=== PATIENT | male | born 1980 | race Two or more races ===

== ENCOUNTER → 2017-02-12 | Outpatient (REF) | payer MEDICAID ==
[2017-02-12 17:28] LABS: BASO # 0.1 10^3/uL (0.0-0.2); BASO % 0.9 % (0.0-1.0); EOS # 0.4 10^3/uL (0.0-0.50); EOS % 4.5 % (0.0-3.0); IMMATURE GRANULOCYTE % 0.3 % (0-0); LYMPH # 2.1 10^3/uL (1.5-4.5); LYMPH % 27.6 % (24.0-44.0); MEAN CORPUSCULAR HEMOGLOBIN 28.4 pg (27.0-33.0); MEAN CORPUSCULAR HGB CONC 32.5 g/dl (32.0-36.5); MEAN CORPUSCULAR VOLUME 87.2 fl (80.0-96.0); MONO # 0.7 10^3/uL (0.0-0.8); MONO % 8.5 % (0.0-5.0); NEUTROPHILS # 4.5 10^3/uL (1.8-7.7); NEUTROPHILS % 58.2 % (36.0-66.0); PLATELET COUNT, AUTOMATED 373 10^3/uL (150-450); RED CELL DISTRIBUTION WIDTH 12.7 % (11.5-14.5); WHITE BLOOD COUNT 7.7 10^3/uL (4.0-10.0)
[2017-02-12 19:12] LABS: ALBUMIN 3.9 GM/DL (3.2-5.2); ALBUMIN/GLOBULIN RATIO 1.11 (1.00-1.93); ALKALINE PHOSPHATASE 88 U/L (45-117); ALT/SGPT 57 U/L (12-78); ANION GAP 11 MEQ/L (8-16); AST/SGOT 30 U/L (7-37); BILIRUBIN,TOTAL 0.3 MG/DL (0.2-1.0); BLOOD UREA NITROGEN 16 MG/DL (7-18); CALCIUM LEVEL 8.6 MG/DL (8.5-10.1); CARBON DIOXIDE LEVEL 26 MEQ/L (21-32); CHLORIDE LEVEL 106 MEQ/L (98-107); CHOLESTEROL LEVEL 200 MG/DL (<200); CREATININE FOR GFR 1.01 MG/DL (0.70-1.30); GLOMERULAR FILTRATION RATE > 60.0 (>60); GLUCOSE, FASTING 86 MG/DL (70-105); POTASSIUM SERUM 4.3 MEQ/L (3.5-5.1); SODIUM LEVEL 143 MEQ/L (136-145); TOTAL PROTEIN 7.4 GM/DL (6.4-8.2); TRIGLYCERIDES LEVEL 115 MG/DL (<150)
== END ==
LOC: M SFHCCAPE 08:02
PROVIDERS: ATTEND Physician Assistant
DX: R03.0 Elevated blood-pressure reading, without diagnosis of hypertension (principal); E66.09 Other obesity due to excess calories; Z68.32 Body mass index [BMI] 32.0-32.9, adult; F90.2 Attention-deficit hyperactivity disorder, combined type

== ENCOUNTER 2020-07-19 21:00 | Inpatient (IN) | payer MEDICAID, OTHER ==
[~2020-07-19] VITALS: Ht 170.2 cm; Wt 96.5 kg
[2020-07-19] MEDS ORDERED: ADDE20TA (21:17)
[2020-07-19 21:40] LABS: BASO # 0.1 10^3/uL (0.0-0.2); BASO % 0.9 % (0.0-1.0); EOS # 0.5 10^3/uL (0.0-0.5); EOS % 5.8 % (0.0-3.0); HEMOGLOBIN 14.3 g/dl (13.5-17.5); LYMPH # 2.7 10^3/uL (1.5-5.0); LYMPH % 30.2 % (24.0-44.0); MEAN CORPUSCULAR HEMOGLOBIN 27.3 pg (27.0-33.0); MEAN CORPUSCULAR HGB CONC 31.8 g/dl (32.0-36.5); MEAN CORPUSCULAR VOLUME 85.9 fl (80.0-96.0); MONO # 0.9 10^3/uL (0.0-0.8); MONO % 10.3 % (2.0-8.0); NEUTROPHILS # 4.6 10^3/uL (1.5-8.5); NEUTROPHILS % 52.6 % (36.0-66.0); PLATELET COUNT, AUTOMATED 375 10^3/uL (150-450); RED BLOOD COUNT 5.24 10^6/uL (4.30-6.10); WHITE BLOOD COUNT 8.8 10^3/uL (4.0-10.0)
[2020-07-19 22:04] LABS: AMPHETAMINES LEVEL URINE POSITIVE (NEGATIVE); BARBITURATES URINE NEGATIVE (NEGATIVE); BENZODIAZEPINES URINE NEGATIVE (NEGATIVE); CANNABINOIDS URINE NEGATIVE (NEGATIVE); COCAINE METABOLITE URINE NEGATIVE (NEGATIVE); METHADONE URINE NEGATIVE (NEGATIVE); OPIATES URINE NEGATIVE (NEGATIVE); PHENCYCLIDINE URINE NEGATIVE (NEGATIVE)
[2020-07-19 22:46] LABS: ACETAMINOPHEN LEVEL < 2.0 UG/ML (10.0-30.0); ALBUMIN 3.6 GM/DL (3.2-5.2); ALT/SGPT 53 U/L (12-78); BILIRUBIN,DIRECT < 0.1 MG/DL (0.0-0.2); BILIRUBIN,TOTAL 0.2 MG/DL (0.2-1.0); BLOOD UREA NITROGEN 12 MG/DL (7-18); CALCIUM LEVEL 8.5 MG/DL (8.5-10.1); CARBON DIOXIDE LEVEL 26 MEQ/L (21-32); CHLORIDE LEVEL 107 MEQ/L (98-107); CREATININE FOR GFR 0.91 MG/DL (0.70-1.30); ETHYL ALCOHOL (ETHANOL) < 0.003 % (0.000-0.010); GLOMERULAR FILTRATION RATE > 60.0 (>60); GLUCOSE, FASTING 107 MG/DL (70-100); POTASSIUM SERUM 3.4 MEQ/L (3.5-5.1); SALICYLATE LEVEL < 1.7 MG/DL (5.0-30.0); SODIUM LEVEL 143 MEQ/L (136-145); TOTAL PROTEIN 6.8 GM/DL (6.4-8.2)
[2020-07-20] MEDS ORDERED: MOM 30ML SUSPENSION UDC PO PRN (04:10)
[2020-07-20] MEDS ORDERED: OLANZapine ORAL DISINTEGRATING TAB 5MG PO PRN (04:10)
[2020-07-20] MEDS ORDERED: traZODone 50 MG TAB PO PRN (04:10)
[2020-07-20] MEDS ORDERED: ACETAMINOPHEN TAB 650MG DOSE (2X325MG) PO PRN (04:10)
[2020-07-20] MEDS ORDERED: MAALOX 30 ML SUSP *UDC PO PRN (04:10)
[2020-07-20] MEDS ORDERED: IBUP-1720 PO (04:40)
[2020-07-20] MEDS ORDERED: ADDE20TA PO (04:40)
[2020-07-20 05:41] VITALS: BP 130/98
--- NOTE | 2020-07-20 10:30 | MHHPEPDOC ---
General Date Of Admission: July 20, 2020 Legal Status: 9.39 Chief Complaint "I hated that place and arguing with my aunt got upset and I said something . History of Present Illness HISTORY OF THE PRESENT ILLNESS: Patient is a 40 -year-old , male, who [has no prior psychiatric history, was brought to emergency room by police after he got very upset and reportedly made a statement that he might as well kill himself. Patient states that his been unemployed for the past 2-3 years, has been staying with his aunt and the house is crampy and he has been feeling miserable. He recently relapsed using methamphetamine after 2 months of sobriety at this in the process of applying for a job. Yesterday in the evening. He was taking a nap and his other aunt woke him up and they started the argument which escalated into angry exchange and he lost his cool and made the statement that he might as well be . His aunt called the police and was brought to the emergency room and admitted. Patient states that he had no intent to kill himself and was in an angry outburst and doesn't even remember what he exactly said and is quite remorseful but also upset that his aunt called the police to have him arrested. He states that he never had any psychiatric issues, although he has been abusing amphetamine for the past 10 years on and off. He denies any legal history and denies any history of depression or suicidal thoughts, and no attempts. He was scheduled to start substance abuse counseling but hasn't started it yet, but is willing to follow up. He claims he has an issue with the ADHD and has been receiving Adderall from his primary care doctor. Is willing to cooperate with evaluation and understands that continues to be an observation, but is anxious to be discharged [facility]. Psychiatric Review of Systems Depression (2 or more weeks): denies Zee (4 or more days of): denies Psychosis: denies PTSD: denies Anxiety: denies Past Psychiatric History Previous Psychiatric Diagnosis: [ADHD since second grade]. Previous Psychiatric Admissions: [None]. Suicide Attempts: No history of suicidal attempt. Psychiatric Follow-up: [Wasn't scheduled for substance abuse counseling]. Psychiatric medications: [Been on Adderall from his primary care doctor]. Past Medical History Medical Problems No major medical history except for asthma Head Injury: No Seizures: No Hospitalizations: No Surgeries: No Family Medical/Psychiatric HX Psychiatric Disorders: No Addiction: No Suicide Attemps/Completions: No Addiction History amphetamines Social History Childhood: [Uneventful]. Abuse/Trauma:[Denies any]. Current Living Situation: [Lived with an aunt and supported by her]. Education: [Went to [employer] majored in [employer]]. Employment: [Unemployed since 2017, no financial resources]. Social Support: [And]. Legal: [Denies any legal issues]. Marital: [, Single, never ]. Mental Status Examination General Appearance: disheveled, hospital scubs/clothing Build: average Demeanor: average Eye Contact: average Activity: average, anxious Behavior: cooperative, restless Speech: clear, rapid, normal volume Mood: anxious, angry Mood He denies any serious depression but is somewhat anxious and feeling worthless at times, but denies any suicidal thoughts. His sleep and appetite has been fair and no other biological symptoms of depression Affect: full, appropriate, congruent, anxious Thought Process: logical/linear Thought Content (Delusions): none reported Thought Content (Other): none reported Thought Content (Aggressive): none reported Perception (Hallucinations): none reported Perception (Other): none reported Cognition (Impairment of): orientation (well-oriented normal. Her memory and fair concentration) Cognition(Intelligence Est.): average Oriented: Awake, Alert, Oriented times three Insight: fair Judgment: Fair Psychosis: Denies Diagnoses Adjustment disorder with mixed emotion Methamphetamine use disorder A-FIB/CHADSVASC A-FIB History Current/History of A-Fib/PAF?: No Current PO Anticoag Therapy: No Age/Risk Factor Scoring CHADSVASC: CHADSVASC Response (Comments) Value Gender Risk Factor Male 0 Hx of CHF No 0 Hx of HTN No 0 Hx of Stroke/TIA/or VTE No 0 Hx of Diabetes No 0 Hx of Vascular Disease No 0 Total 0 Treatment Treatment ordered: NONE Assessment The patient does not appear to have any major depressive symptoms and strongly denies any suicidal thoughts. He is not showing any psychotic symptoms understands the that he has methamphetamine. This use disorder and is willing to follow up with the substance abuse counseling after discharge. We were observing him for any lethality issues with the supportive therapy and education. Initial Treatment Plan 1. Patient was admitted on a [9.39] status. 2. Complete history was obtained. 3. With patients permission, family will be contacted and database will be exp anded. 4. Patients medication regimen will be reviewed and changed accordingly. 5. Patient will be provided with protected environment. 6. Patient will be treated with individual, group, and milieu therapies. 7. Patient will receive supportive psych-education. 8. Discharge planning will commence immediately. 9. Outpatient follow-up treatment will be strongly recommended. 10. The initial treatment plan will focus initially on: * Depression. * Risk for suicide. ESTIMATED LENGTH OF STAY: - DAYS. TIME SPENT COUNSELING AND COORDINATING INITIAL CARE: minutes. Tobacco Cessation Screen If Patient is a Smoker Patient denies being a heavy smoker and doesn't want any nicotine cessation treatment N/A-No Antipsychotics Vital Signs Vital Signs Date Time Temp Pulse Resp B/P (MAP) Pulse Ox O2 Delivery O2 Flow Rate FiO2 07/20/20 05:41 97.2 80 18 130/98 (109) 99 Room Air Laboratory Data 24H Labs Laboratory Tests 2 07/19/20 21:29: Immature Granulocyte % (Auto) 0.2, Neutrophils (%) (Auto) 52.6, Lymphocytes (%) (Auto) 30.2, Monocytes (%) (Auto) 10.3H, Eosinophils (%) (Auto) 5.8H, Basophils (%) (Auto) 0.9, Neutrophils # (Auto) 4.6, Lymphocytes # (Auto) 2.7, Monocytes # (Auto) 0.9H, Eosinophils # (Auto) 0.5, Basophils # (Auto) 0.1, Nucleated Red Blood Cells % (auto) 0.0, Anion Gap 10, Glomerular Filtration Rate > 60.0, Calcium Level 8.5, Total Bilirubin 0.2, Direct Bilirubin < 0.1, Aspartate Amino Transf (AST/SGOT) 38H, Alanine Aminotransferase (ALT/SGPT) 53, Alkaline Phosphatase 100, Total Protein 6.8, Albumin 3.6, Albumin/Globulin Ratio 1.1, Thyroid Stimulating Hormone (TSH) 2.180, Salicylates Level < 1.7L, Urine Opiates Screen NEGATIVE, Urine Methadone Screen NEGATIVE, Acetaminophen Level < 2.0L, Urine Barbiturates Screen NEGATIVE, Urine Phencyclidine Screen NEGATIVE, Urine Amphetamines Screen POSITIVEH, Urine Benzodiazepines Screen NEGATIVE, Urine Cocaine Metabolite Screen NEGATIVE, Urine Cannabinoids Screen NEGATIVE, Ethyl Al cohol Level < 0.003 CBC/BMP Laboratory Tests 07/19/20 21:29 Medications Scheduled Dextroamphetamine/Amphetamine (Adderall 20 mg Tablet) 20 Mg Tablet, 20 MG PO BID, (Reported) Scheduled PRN Ibuprofen (Ibuprofen) 200 Mg Tablet, 600 MG PO Q6H PRN for PAIN, (Reported) Allergies Coded Allergies: No Known Allergies (Unverified , 07/19/20) GUILLAUME VALENTINE M.D. July 20, 2020 10:29
--- NOTE | 2020-07-20 16:13 | HPEPDOC ---
General Date of Admission July 19, 2020 at 21:01 Date of Service: July 20, 2020 Attending Physician: SIDDHARTH PIRES MD Chief Complaint The patient is a 40-year-old male admitted with a reason for visit of Unspecified Mood D/O. Source: Patient, RN/MD, RN notes reviewed Exam Limitations: No limitations History of Present Illness 40 yo M with a past medical history of asthma and ADHD on Adderall, as well as a history of illicit drug use with meth, who was brought in by police after his father called them because the patient had made threatening suicidal statements i/s/o psychosocial stressors with an aunt he resides with and frustration over lack of personal living space and financial independence as he is struggling to get a job and a recent relapse and use of meth after 2 months of sobriety. In the ED, he denied active suicidal ideation or a plan but reported feeling hopeless. Workup was notable for grossly normal CBC and BMP and tox screen was positive for amphetamines which may be from his Adderall. He is now admitted to the [facility] and medicine is consulted for medical evaluation. On ROS, he reports L ankle pain from his ongoing tendonitis for which he is wearing a brace and is asking for ibuprofen because that is what works for his pain. Home Medications Scheduled Dextroamphetamine/Amphetamine (Adderall 20 mg Tablet) 20 Mg Tablet, 20 MG PO BID, (Reported) Scheduled PRN Ibuprofen (Ibuprofen) 200 Mg Tablet, 600 MG PO Q6H PRN for PAIN, (Reported) Allergies Coded Allergies: No Known Allergies (Unverified , 07/19/20) Past Medical History Medical History asthma ADHD Surgical History None Social History * Smoker: Denies Alcohol: Denies Drugs: other (crystal meth) Recent Travel/Sick Contacts: Denies: Recent travel, Recent sick contacts Psychosocial History: Att. deficit disorder A-FIB/CHADSVASC A-FIB History Current/History of A-Fib/PAF?: No Current PO Anticoag Therapy: No Age/Risk Factor Scoring CHADSVASC: CHADSVASC Response (Comments) Value Age Risk Factor Age < 65 years old 0 Gender Risk Factor Male 0 Hx of CHF No 0 Hx of HTN No 0 Hx of Stroke/TIA/or VTE No 0 Hx of Diabetes No 0 Hx of Vascular Disease No 0 Total 0 Treatment Treatment ordered: NONE Reason Anticoagulant not given: Not indicated/[id number] Review of Systems Constitutional: Denies: Chills, Fever, Night Sweats Eyes: Denies: Pain, Vision change ENT: Denies: Head Aches, Ear Pain, Dysphagia Skin: Denies: Rash, Lesions, Jaundice, Bruising, Itching, Dry, Breakdown, Nail Changes, Other Pulmonary: Denies: Dyspnea, Cough Cardiovascular: Denies: Chest Pain, Palpitations, Orthopnea, Paroxysmal Noc. Dyspnea, Lt Headedness Gastrointestinal: Denies: Nausea, Vomiting, Abdominal Pain, Diarrhea Genitourinary: Denies: Dysuria, Frequency, Incontinence, Retention Hematologic: Denies: Bruising, Bleeding Excessively Endocrine: Denies: Polydipsia, Polyphagia, Polyuria, Heat Intolerance, Cold Intolerance, Other Endocrine Sx Musculoskeletal: Denies: Neck Pain, Back Pain, Joint Pain, Muscle Pain, Spasms Neurological: Denies: Weakness, Numbness, Change in speech, Confusion Psych: Reports: Mood Normal, Anxiety, Depression; Denies: Memory Issues Physical Examination General Exam: Positive: Alert, No Acute Distress Eye Exam: Positive: PERRLA, Conjunctiva & lids normal, EOMI; Negative: Sclera icteric ENT Exam: Positive: Atraumatic, Mucous membr. moist/pink, Pharynx Normal Neck Exam: Positive: Supple; Negative: JVD, thyromegaly Chest Exam: Positive: Clear to auscultation, Normal air movement Heart Exam: Positive: Rate Normal, Regular Rhythm, Normal S1, Normal S2; Negative: Murmurs, Rubs Abdomen Exam: Positive: Normal bowel sounds, Soft; Negative: Tenderness, Hepatospenomegaly Extremity Exam: Positive: Normal pulses; Negative: Clubbing, Cyanosis, Edema Skin Exam: Positive: Nl turgor and temperature; Negative: Breakdown, Lesion Neuro Exam: Positive: Normal Gait, Normal Speech, Cranial Nerves 3-12 NL, Reflexes 2+ Psych Exam: Positive: Mental status NL, Mood NL, Oriented x 3 Vital Signs Vital Signs Date Time Temp Pulse Resp B/P (MAP) Pulse Ox O2 Delivery O2 Flow Rate FiO2 07/20/20 05:41 97.2 80 18 130/98 (109) 99 Room Air Laboratory Data Labs 24H Laboratory Tests 2 07/19/20 21:29: Immature Granulocyte % (Auto) 0.2, Neutrophils (%) (Auto) 52.6, Lymphocytes (%) (Auto) 30.2, Monocytes (%) (Auto) 10.3H, Eosinophils (%) (Auto) 5.8H, Basophils (%) (Auto) 0.9, Neutrophils # (Auto) 4.6, Lymphocytes # (Auto) 2.7, Monocytes # (Auto) 0.9H, Eosinophils # (Auto) 0.5, Basophils # (Auto) 0.1, Nucleated Red Blood Cells % (auto) 0.0, Anion Gap 10, Glomerular Filtration Rate > 60.0, Calcium Level 8.5, Total Bilirubin 0.2, Direct Bilirubin < 0.1, Aspartate Amino Transf (AST/SGOT) 38H, Alanine Aminotransferase (ALT/SGPT) 53, Alkaline Phos phatase 100, Total Protein 6.8, Albumin 3.6, Albumin/Globulin Ratio 1.1, Thyroid Stimulating Hormone (TSH) 2.180, Salicylates Level < 1.7L, Urine Opiates Screen NEGATIVE, Urine Methadone Screen NEGATIVE, Acetaminophen Level < 2.0L, Urine Barbiturates Screen NEGATIVE, Urine Phencyclidine Screen NEGATIVE, Urine Amphetamines Screen POSITIVEH, Urine Benzodiazepines Screen NEGATIVE, Urine Cocaine Metabolite Screen NEGATIVE, Urine Cannabinoids Screen NEGATIVE, Ethyl Alcohol Level < 0.003 CBC/BMP Laboratory Tests 07/19/20 21:29 Microbiology Microbiology 07/20/20 Respiratory Virus Panel (PCR) ([facility] [place]) - Final, Complete Assessment/Plan 40 yo M admitted to the [facility] after making suicidal statements to family i/s/o psychosocial stress and recent relapse with crystal meth. Suicidal ideation and depressed mood: -Plan per primary psych team Asthma: -Was mostly a childhood issue. No recent problems. Stable L ankle tendonitis: -can continue wearing current brace -ibuprofen 600mg Q6HP DVT ppx: ambulatory Thank you for the consult. Medicine will sign off at this time. Plan / VTE VTE Prophylaxis Ordered?: No VTE Exclusion Mechanical Proph: Low Risk for VTE VTE Exclusion Pharmacological: At Low Risk for VTE SIDDHARTH PIRES MD July 20, 2020 13:08
[2020-07-20 16:20] VITALS: BP 136/90
[2020-07-20] MEDS: IBUPROFEN 600MG TAB PO PRN (16:29)
[2020-07-21 06:25] VITALS: BP 137/86
--- NOTE | 2020-07-21 11:01 | MHIPNPDOC ---
[facility] Progress Note Progress Note DATE OF SERVICE: 07/21/20 The patient reports that the he had a good day and slept without any problems and denies any new issues and feeling better without any more suicidal thoughts. He still doesn't feel he needs any psychotropic medications and doesn't feel he needs any psychiatric follow-up care. He is pleasant and animated and verbally productive strongly denies any suicidal thoughts. HISTORY: . VITAL SIGNS: See below. NEW TEST RESULTS: . CURRENT MEDICATIONS: See below. MENTAL STATUS EXAMINATION: Patient is a 40-year old male, who is in no acute distress. Speech: Is good. Language skills are good. Thought processes including: Organized and rational . Thought content: . No psychotic symptoms. Abstract reasoning, and computation: Good. Description of associations: Good. Description of abnormal or psychotic thoughts: None . Judgment: , Fair. Insight: , Fair. Orientation: , Well-oriented. Recent and remote memory: Good. Attention span and concentration: Good. Language: . Fund of knowledge: Average. Mood: Euthymic. Affect: , Appropriate. DIAGNOSES: 1. . Adjustment disorder with mixed emotion 2. . 3. . ASSESSMENT:[In good control and denies any suicidal thoughts] MANAGEMENT PLAN: [, Supportive therapy and lethality evaluation]. TIME SPENT: [15] minutes. Vital Signs Vital Signs Date Time Temp Pulse Resp B/P (MAP) Pulse Ox O2 Delivery O2 Flow Rate FiO2 07/21/20 06:25 98.5 84 18 137/86 (103) 97 Room Air Current Medications Current Medications Medications (Trade) Dose Ordered Sig/Amy Route PRN Reason Start Time Stop Time Status Last Admin Dose Admin Acetaminophen (Tylenol Tab) 650 mg Q6HP PRN PO HEADACHE or DISCOMFORT 07/20/20 04:10 Al Hydrox/Mg Hydrox/Simethicone (Mylanta) 30 ml Q4HP PRN PO HEARTBURN/INDIGESTION 07/20/20 04:10 Home Med (Med Rec Complete!) ASDIRECTED XX 07/20/20 04:40 07/20/20 04:42 DC Ibuprofen (Advil) 600 mg Q8HP PRN PO PAIN 07/20/20 16:10 07/20/20 16:29 Magnesium Hydroxide (Milk Of Magnesia) 30 ml DAILYPRN PRN PO CONSTIPATION 07/20/20 04:10 Olanzapine (ZyPREXA ZYDIS) 5 mg Q6HP PRN PO ANXIETY 07/20/20 04:10 Trazodone HCl (Desyrel) 50 mg QHSP PRN PO INSOMNIA 07/20/20 04:10 Allergies Coded Allergies: No Known Allergies (Unverified , 07/19/20) GUILLAUME VALENTINE M.D. July 21, 2020 11:01
[2020-07-21] MEDS: IBUPROFEN 600MG TAB PO PRN (12:39)
[2020-07-21 16:28] VITALS: BP 126/77
[2020-07-22 06:25] VITALS: BP 128/86
--- NOTE | 2020-07-22 08:49 | MHIPNPDOC ---
[facility] Progress Note Progress Note DATE OF SERVICE: 07/22/20 Patient reports that he slept well and is doing okay and reports no new complaints. He is feeling a little bored, but not anymore depressed and strongly denies any suicidal thoughts. His main concern is returnining to his aunt after d/c feeling somewhat uneasy and all current apparently hadn't spoken to her and is welcome to return there. He is going to go and look for a job and trying to get motivated and strongly denies any thoughts of suicide and is anxious to be discharged and declined any type of psychotropic medications. VITAL SIGNS: See below. NEW TEST RESULTS: . CURRENT MEDICATIONS: See below. MENTAL STATUS EXAMINATION: Patient is a forwarded to-year old male, who is , sitting on his bed, pleasant and cooperative and no acute distress. Speech: Is regression are coherent. Language skills are good. Thought processes including: , Organized. Thought content: , No delusions or paranoia. No suicidal thoughts. Abstract reasoning, and computation: Good. Description of associations: [Good]. Description of abnormal or psychotic thoughts: None . Judgment: [Fair]. Insight: [Fair]. Orientation: [, Well-oriented]. Recent and remote memory: [Good]. Attention span and concentration: [Good]. Language: . Fund of knowledge: [Average]. Mood: [Euthymic]. Affect: [, Appropriate]. DIAGNOSES: 1. . Adjustment disorder with mixed emotion 2. . 3. . ASSESSMENT:[Remained in good control and denies any suicidal or thoughts with the improved affect and more animated and spontaneous] MANAGEMENT PLAN: [. Continue with the supportive therapy and lethality evaluation and possibly discharge tomorrow]. TIME SPENT: [20] minutes. Vital Signs Vital Signs Date Time Temp Pulse Resp B/P (MAP) Pulse Ox O2 Delivery O2 Flow Rate FiO2 07/22/20 06:25 97.2 79 18 128/86 (100) 96 Room Air Current Medications Current Medications Medications (Trade) Dose Ordered Sig/Amy Route PRN Reason Start Time Stop Time Status Last Admin Dose Admin Acetaminophen (Tylenol Tab) 650 mg Q6HP PRN PO HEADACHE or DISCOMFORT 07/20/20 04:10 Al Hydrox/Mg Hydrox/Simethicone (Mylanta) 30 ml Q4HP PRN PO HEARTBURN/INDIGESTION 07/20/20 04:10 Home Med (Med Rec Complete!) ASDIRECTED XX 07/20/20 04:40 07/20/20 04:42 DC Ibuprofen (Advil) 600 mg Q8HP PRN PO PAIN 07/20/20 16:10 07/21/20 12:39 Magnesium Hydroxide (Milk Of Magnesia) 30 ml DAILYPRN PRN PO CONSTIPATION 07/20/20 04:10 Olanzapine (ZyPREXA ZYDIS) 5 mg Q6HP PRN PO ANXIETY 07/20/20 04:10 Trazodone HCl (Desyrel) 50 mg QHSP PRN PO INSOMNIA 07/20/20 04:10 Allergies Coded Allergies: No Known Allergies (Unverified , 07/19/20) GUILLAUME VALENTINE M.D. July 22, 2020 08:49
[2020-07-22] MEDS: IBUPROFEN 600MG TAB PO PRN (10:56)
[2020-07-22 16:13] VITALS: BP 124/80
[2020-07-23 06:25] VITALS: BP 142/81
[2020-07-23] MEDS: IBUPROFEN 600MG TAB PO PRN (08:35)
--- NOTE | 2020-07-23 10:10 | MHDSPDOC ---
[facility] Discharge Summary Discharge Summary DATE OF ADMISSION: July 19, 2020 at 21:01 DATE OF DISCHARGE: July 13 12/26/2020 DISCHARGE DIAGNOSES: Adjustment disorder with mixed emotion]. 2. . REASON FOR ADMISSION: Patient was admitted after making a vague suicidal statement in an argument with his aunt. Patient reports feeling upset and angry due to his current unemployment and unstable living situation CONSULTANTS INVOLVED: [facility]- TREATMENT AND PROGRESS ON THE UNIT : Patient was seen for daily supportive therapy and lethality evaluation. Patient denies any ongoing major depressive symptoms and strongly denied any suicidal plan or intent or history. He has a history of amphetamine abuse, but has been in sobriety except for brief relapse in May and denies any current addictions issues and denies any serious depression or suicidal thoughts.. HOSPITAL COURSE: Patient remained in good control are throughout the stay. He was initially a little anxious and upset about being hospitalized, but has fully cooperated with unit activities. He was eating and sleeping well and has no physical complaint and continued to deny any lethality issues. He was pleasant and animated, appropriate, and continued to deny any serious depression and doesn't want to take any psychotropic medicine and doesn't believe he needs any active outpatient treatment. DISCHARGE ASSESSMENT: Maintaining good spirits. Uncontrolled and pleasant and appropriate, and doesn't appear to be seriously depressed and not suicidal at all. MENTAL STATUS EXAMINATION ON DISCHARGE: Patient is a 40-year old male, who is , pleasant and in no distress. Speech is , productive and spontaneous. Language skills are good. Thought processes including: Well-organized. Thought content: Psychotic symptoms and denies any serious depression. Abstract reasoning, and computation: Good. Description of associations: Well-organized. Description of abnormal or psychotic thoughts: Non-. Judgment: , Fair. Insight: , Fair. Orientation to , oriented to 3 spheres. Recent and remote memory: Good. Attention span and concentration: Good. Language: Good. Fund of knowledge: Average. Mood: Euthymic. Affect: , Pleasant, appropriate with good range of emotion. MEDICATIONS ON DISCHARGE: None prescribed - for . - for . - for . PLAN/FOLLOWUP ARRANGEMENTS: As arranged by production planner scheduler. The amount of time spent in the coordination of care for this patient was approximately 35 minutes. ETOH/Disorder Med Rx ETOH/DRUG DISORDER RX: N/A Vital Signs/I&Os Vital Signs Date Time Temp Pulse Resp B/P (MAP) Pulse Ox O2 Delivery O2 Flow Rate FiO2 07/23/20 06:25 97.7 76 16 142/81 (101) 98 Room Air Laboratory Data Microbiology Microbiology 07/20/20 Respiratory Virus Panel (PCR) ([facility]) - Final, Complete Medications No Active Prescriptions or Reported Meds Allergies Coded Allergies: No Known Allergies (Unverified , 07/19/20) GUILLAUME VALENTINE M.D. July 23, 2020 10:10
== END 2020-07-23 11:27 | disposition home or self-care (01) | DRG 755 ==
LOC: M ED 21:00 → M ED INP 21:01 → M PSY 07-20 05:05
PROVIDERS: ADMIT Psychiatry & Neurology Psychiatry; ATTEND Psychiatry & Neurology Psychiatry
DX: F43.25 Adjustment disorder with mixed disturbance of emotions and conduct (principal); F15.10 Other stimulant abuse, uncomplicated; F90.9 Attention-deficit hyperactivity disorder, unspecified type; J45.909 Unspecified asthma, uncomplicated; M65.272 Calcific tendinitis, left ankle and foot; Z79.899 Other long term (current) drug therapy; Z56.0 Unemployment, unspecified; Z20.822 Contact with and (suspected) exposure to COVID-19

== ENCOUNTER → 2023-06-10 | Outpatient (REF) | payer OTHER ==
[~2023-06-10] MED LIST: ADDE20TA; ADDE20TA PO; IBUP-1720 PO
[2023-06-10 18:41] LABS: C REACTIVE PROTEIN QUANTITATIV 0.8 MG/DL (<1.0)
[2023-06-10 18:43] LABS: RHEUMATOID FACTOR QUANT 6.3 IU/ML (<14)
[2023-06-12 14:14] LABS: ANTI DOUBLE STRAND-DNA AB <1 IU/mL (0-9); ANTINUCLEAR ANTIBODIES DIRECT Positive (Negative); SJOGREN'S ANTI SS-A <0.2 AI (0.0-0.9); SJOGREN'S ANTI SS-B <0.2 AI (0.0-0.9); SMITH ANTIBODIES <0.2 AI (0.0-0.9)
== END ==
LOC: M SFHCCLAY 10:03
PROVIDERS: ATTEND Physician Assistant
DX: M79.641 Pain in right hand (principal); M79.642 Pain in left hand

== ENCOUNTER → 2023-06-10 | Outpatient (CLI) | payer OTHER | LOC: M CLY 10:12 | PROVIDERS: ATTEND Physician Assistant | DX: M79.641 Pain in right hand (principal); M79.642 Pain in left hand ==

== ENCOUNTER → 2023-06-18 | Outpatient (REF) | payer OTHER ==
[2023-06-18 18:20] LABS: BASO % 0.3 % (0.0-1.0); EOS # 0.6 10^3/uL (0.0-0.5); EOS % 5.6 % (0.0-3.0); HEMATOCRIT 43.3 % (42.0-52.0); HEMOGLOBIN 13.8 g/dl (13.5-17.5); LYMPH # 1.4 10^3/uL (1.5-5.0); LYMPH % 13.7 % (24.0-44.0); MEAN CORPUSCULAR HEMOGLOBIN 28.2 pg (27.0-33.0); MEAN CORPUSCULAR HGB CONC 31.9 g/dl (32.0-36.5); MEAN CORPUSCULAR VOLUME 88.4 fl (80.0-96.0); MONO # 0.6 10^3/uL (0.0-0.8); MONO % 6.3 % (2.0-8.0); NEUTROPHILS # 7.5 10^3/uL (1.5-8.5); NEUTROPHILS % 73.8 % (36.0-66.0); PLATELET COUNT, AUTOMATED 365 10^3/uL (150-450); WHITE BLOOD COUNT 10.2 10^3/uL (4.0-10.0)
[2023-06-18 18:39] LABS: URIC ACID 9.2 MG/DL (3.7-9.2)
[2023-06-18 18:43] LABS: ALBUMIN 3.9 G/DL (3.2-5.2); ALKALINE PHOSPHATASE 82 U/L (46-116); ALT/SGPT 55 U/L (7.0-40); AST/SGOT 40 U/L (<34); BILIRUBIN,TOTAL 0.7 MG/DL (0.3-1.2); BLOOD UREA NITROGEN 21 MG/DL (9-23); CALCIUM LEVEL 9.1 MG/DL (8.5-10.1); CARBON DIOXIDE LEVEL 26 MMOL/L (20-31); CHLORIDE LEVEL 108 MMOL/L (98-107); CREATININE FOR GFR 0.88 MG/DL (0.70-1.30); GLOMERULAR FILTRATION RATE > 60.0 (>60); GLUCOSE, FASTING 103 MG/DL (60-100); POTASSIUM SERUM 4.3 MMOL/L (3.5-5.1); SODIUM LEVEL 142 MMOL/L (136-145); TOTAL PROTEIN 6.5 G/DL (5.7-8.2)
[2023-06-18 18:44] LABS: FREE T4 0.92 NG/DL (0.89-1.76); THYROID STIMULATING HORMONE 2.581 uIU/ML (0.55-4.78)
== END ==
LOC: M SFHCCLAY 11:14
PROVIDERS: ATTEND Physician Assistant
DX: R76.8 Other specified abnormal immunological findings in serum (principal)

== ENCOUNTER → 2023-09-23 | Outpatient (REF) | payer OTHER ==
[~2023-09-23] MED LIST changes: +AMPH1TAB2 PO; +IBUP80TA PO
[2023-09-23 18:55] LABS: FERRITIN 32.8 NG/ML (10.5-307.3)
[2023-09-23 18:56] LABS: HEPATITIS B SURFACE ANTIBODY NEGATIVE (POSITIVE)
[2023-09-23 19:08] LABS: HEPATITIS B SURFACE ANTIGEN NEGATIVE (NEGATIVE)
[2023-09-23 19:29] LABS: HEPATITIS C VIRUS ABY INDEX < 0.02 INDEX (<0.8)
== END ==
LOC: M SFHCCLAY 09:27
PROVIDERS: ATTEND Family Medicine
DX: R74.8 Abnormal levels of other serum enzymes (principal)

== ENCOUNTER 2023-10-05 07:21 | Day surgery (SDC) | payer OTHER ==
[~2023-10-05] VITALS: Ht 168.9 cm; Wt 83.4 kg
[2023-10-05] MEDS ORDERED: LR 1,000 ML IV SCH ×2 (07:45→09:35)
[2023-10-05] MEDS ORDERED: LIDOCAINE 2% 100MG/5ML SDV (FOR ANES.) As Ordered ONE (08:20)
[2023-10-05] MEDS ORDERED: propofoL 200 MG/20 ML VIAL As Ordered ONE (08:20)
[2023-10-05] MEDS ORDERED: fentaNYL 100 MCG/2 ML INJECTION As Ordered ONE (08:46)
[2023-10-05] MEDS ORDERED: MIDAZOLAM INJ 2MG/2ML VIAL As Ordered ONE (08:46)
[2023-10-05] MEDS ORDERED: LABETALOL 100MG/20ML VIAL As Ordered ONE (09:21)
[2023-10-05] MEDS ORDERED: fentaNYL 100 MCG/2 ML INJECTION IV PRN (09:35)
[2023-10-05] MEDS ORDERED: HYDROMORPHONE HCL 0.5 MG/ 0.5 ML SYRINGE IV PRN (09:35)
[2023-10-05] MEDS ORDERED: oxyCODONE 5MG TAB PO PRN (09:35)
[2023-10-05] MEDS ORDERED: ONDANSETRON 4MG 2ML VIAL IV PRN (09:35)
[2023-10-05 10:50] VITALS: BP 157/99; TEMP 97.1; O2SAT 99
== END 2023-10-05 11:10 | disposition home or self-care (01) ==
LOC: M SDC 07:21
PROVIDERS: ATTEND Orthopaedic Surgery Hand Surgery
DX: G56.01 Carpal tunnel syndrome, right upper limb (principal); F12.10 Cannabis abuse, uncomplicated; Z87.891 Personal history of nicotine dependence; J45.909 Unspecified asthma, uncomplicated; F90.9 Attention-deficit hyperactivity disorder, unspecified type
CPT/HCPCS: 29848; J0665; J1920; J2250; J3010

== ENCOUNTER 2023-12-02 09:50 | Emergency (ER) | payer OTHER ==
[~2023-12-02] VITALS: Ht 170.2 cm; Wt 75.0 kg
[2023-12-02 09:54] VITALS: BP 138/91; TEMP 97.1; O2SAT 100
== END 2023-12-02 11:27 | disposition home or self-care (01) ==
LOC: M ED 09:50
DX: S46.211A Strain of muscle, fascia and tendon of other parts of biceps, right arm, initial encounter (principal); X50.0XXA Overexertion from strenuous movement or load, initial encounter; F90.9 Attention-deficit hyperactivity disorder, unspecified type; F12.10 Cannabis abuse, uncomplicated; F10.10 Alcohol abuse, uncomplicated; Y92.9 Unspecified place or not applicable; Y93.89 Activity, other specified; Y99.9 Unspecified external cause status; Z79.1 Long term (current) use of non-steroidal anti-inflammatories (NSAID); Z79.899 Other long term (current) drug therapy

== ENCOUNTER → 2023-12-08 | Outpatient (CLI) | payer OTHER | LOC: M SOG 07:21 | PROVIDERS: ATTEND Physician Assistant | DX: M25.511 Pain in right shoulder (principal) ==

== ENCOUNTER → 2023-12-17 | Outpatient (CLI) | payer OTHER | LOC: M PLARAD 08:46 | PROVIDERS: ATTEND Physician Assistant | DX: M25.511 Pain in right shoulder (principal); M19.011 Primary osteoarthritis, right shoulder ==

== ENCOUNTER → 2023-12-17 | Outpatient (CLI) | payer OTHER | LOC: M RAD 07:07 | PROVIDERS: ATTEND Physician Assistant | DX: M79.601 Pain in right arm (principal); R93.6 Abnormal findings on diagnostic imaging of limbs ==

== ENCOUNTER → 2024-01-26 | Outpatient (REF) | payer OTHER | LOC: M SFHCCLAY 09:14 | PROVIDERS: ATTEND Physician Assistant | DX: F90.2 Attention-deficit hyperactivity disorder, combined type (principal); E78.00 Pure hypercholesterolemia, unspecified ==

== ENCOUNTER → 2024-02-09 | Outpatient (REF) | payer OTHER ==
[~2024-02-09] MED LIST changes: +ADDE1TAB14 PO; +AMPH1TAB2; +CEFD300CAP PO; +FLOM0.4C39 PO; +IBUP200T46 PO
[2024-02-09 17:15] LABS: BASO # 0.1 10^3/uL (0.0-0.2); BASO % 1.2 % (0.0-1.0); EOS # 0.5 10^3/uL (0.0-0.5); EOS % 8.8 % (0.0-3.0); HEMOGLOBIN 14.8 g/dl (13.5-17.5); LYMPH # 1.6 10^3/uL (1.5-5.0); MEAN CORPUSCULAR HEMOGLOBIN 29.2 pg (27.0-33.0); MEAN CORPUSCULAR HGB CONC 32.9 g/dl (32.0-36.5); MEAN CORPUSCULAR VOLUME 88.9 fl (80.0-96.0); MONO # 0.5 10^3/uL (0.0-0.8); MONO % 8.7 % (2.0-8.0); NEUTROPHILS # 3.1 10^3/uL (1.5-8.5); NEUTROPHILS % 54.1 % (36.0-66.0); PLATELET COUNT, AUTOMATED 311 10^3/uL (150-450); RED BLOOD COUNT 5.06 10^6/uL (4.30-6.10); WHITE BLOOD COUNT 5.8 10^3/uL (4.0-10.0)
[2024-02-09 17:37] LABS: ALBUMIN 4.1 G/DL (3.2-5.2); ALKALINE PHOSPHATASE 62 U/L (40-129); ALT/SGPT 31 U/L (7.0-40); AST/SGOT 18 U/L (<34); BILIRUBIN,TOTAL 0.7 MG/DL (0.3-1.2); BLOOD UREA NITROGEN 18 MG/DL (9-23); CALCIUM LEVEL 10.2 MG/DL (8.5-10.1); CARBON DIOXIDE LEVEL 28 MMOL/L (20-31); CHLORIDE LEVEL 107 MMOL/L (98-107); CHOLESTEROL LEVEL 295 MG/DL (<200); CHOLESTEROL RISK RATIO 4.57 (<5); GLOMERULAR FILTRATION RATE > 60.0 (>60); GLUCOSE, FASTING 91 MG/DL (60-100); HDL CHOLESTEROL 64.5 MG/DL (>40); LDL CHOLESTEROL 214.3 MG/DL (<100); NON-HDL-C 230.5 MG/DL; POTASSIUM SERUM 4.9 MMOL/L (3.5-5.1); SODIUM LEVEL 139 MMOL/L (136-145); TOTAL PROTEIN 7.2 G/DL (5.7-8.2); TRIGLYCERIDES LEVEL 81 MG/DL (<150)
== END ==
LOC: M SFHCCLAY 09:37
PROVIDERS: ATTEND Physician Assistant
DX: E78.00 Pure hypercholesterolemia, unspecified (principal); F90.2 Attention-deficit hyperactivity disorder, combined type

== ENCOUNTER 2024-02-12 10:57 | Inpatient (IN) | payer OTHER ==
[~2024-02-12] VITALS: Ht 170.2 cm; Wt 72.3 kg
[~2024-02-12 10:57] MED LIST changes: -ADDE1TAB14 PO; -AMPH1TAB2; -CEFD300CAP PO; -FLOM0.4C39 PO; -IBUP200T46 PO
[2024-02-12] MEDS ORDERED: AMPH1TAB2 (11:10)
[2024-02-12 12:06] LABS: BASO # 0.1 10^3/uL (0.0-0.2); BASO % 0.3 % (0.0-1.0); EOS # 0.6 10^3/uL (0.0-0.5); HEMATOCRIT 46.7 % (42.0-52.0); LYMPH # 0.7 10^3/uL (1.5-5.0); LYMPH % 3.7 % (24.0-44.0); MEAN CORPUSCULAR HEMOGLOBIN 29.1 pg (27.0-33.0); MEAN CORPUSCULAR HGB CONC 32.1 g/dl (32.0-36.5); MEAN CORPUSCULAR VOLUME 90.5 fl (80.0-96.0); MONO # 1.2 10^3/uL (0.0-0.8); MONO % 6.1 % (2.0-8.0); NEUTROPHILS # 16.9 10^3/uL (1.5-8.5); NEUTROPHILS % 86.5 % (36.0-66.0); PLATELET COUNT, AUTOMATED 334 10^3/uL (150-450); RED BLOOD COUNT 5.16 10^6/uL (4.30-6.10); WHITE BLOOD COUNT 19.5 10^3/uL (4.0-10.0)
[2024-02-12 12:33] LABS: BLOOD UREA NITROGEN 19 MG/DL (9-23); CARBON DIOXIDE LEVEL 29 MMOL/L (20-31); CHLORIDE LEVEL 108 MMOL/L (98-107); CREATININE FOR GFR 0.88 MG/DL (0.70-1.30); GLOMERULAR FILTRATION RATE > 60.0 (>60); GLUCOSE, FASTING 154 MG/DL (60-100); POTASSIUM SERUM 4.6 MMOL/L (3.5-5.1); SODIUM LEVEL 144 MMOL/L (136-145)
[2024-02-12] MEDS: ONDANSETRON 4MG 2ML VIAL IV ONE (12:48)
[2024-02-12] MEDS: KETOROLAC 30 MG/ML 1ML VIAL IV ONE (12:49)
[2024-02-12] MEDS: cefTRIAXone SOD 2 GM in DEXTROSE 5% (D5W) ADV/MINI-BAG 50 ML IV ONE (13:58)
[2024-02-12] MEDS: MORPHINE 2 MG/ML 1ML VIAL IV PRN (15:44)
[2024-02-12] MEDS ORDERED: ADDE1TAB14 PO (17:59)
[2024-02-12] MEDS ORDERED: IBUP200T46 PO (17:59)
[2024-02-12] MEDS ORDERED: HOME MED LIST COMPLETE! XX SCH (18:00)
[2024-02-12] MEDS ORDERED: ACETAMINOPHEN 325 MG TAB PO PRN (18:10)
[2024-02-12] MEDS ORDERED: ONDANSETRON 4MG 2ML VIAL IV PRN (18:10)
[2024-02-12] MEDS: NS 1,000 ML IV SCH (18:27)
[2024-02-12] MEDS ORDERED: ALBUTEROL SULFATE 2.5MG/0.5ML INH NEB SOLN NEB PRN (18:30)
[2024-02-12 18:53] LABS: C REACTIVE PROTEIN QUANTITATIV < 0.50 MG/DL (<1.0)
[2024-02-12 18:56] LABS: FREE T4 1.25 NG/DL (0.89-1.76); THYROID STIMULATING HORMONE 3.889 uIU/ML (0.55-4.78)
[2024-02-12 19:00] VITALS: BP 151/99; TEMP 98; O2SAT 100
[2024-02-12] MEDS: TAMSULOSIN 0.4 MG CAP PO SCH (20:19)
[2024-02-12 21:50] VITALS: BP 140/91; TEMP 98.1; O2SAT 100
[2024-02-12] MEDS: KETOROLAC 30 MG/ML 1ML VIAL IV PRN (21:58)
[2024-02-12 23:53] VITALS: BP 146/84; TEMP 98.6; O2SAT 98
[2024-02-13 04:00] VITALS: BP 123/83; TEMP 98.4; O2SAT 100
[2024-02-13 04:19] VITALS: BP 131/78; TEMP 98.3; O2SAT 97
[2024-02-13] MEDS: ADDERALL 5 MG TAB PO SCH (07:00)
[2024-02-13 07:17] LABS: BASO # 0.1 10^3/uL (0.0-0.2); BASO % 0.5 % (0.0-1.0); EOS # 1.2 10^3/uL (0.0-0.5); EOS % 11.3 % (0.0-3.0); HEMATOCRIT 38.2 % (42.0-52.0); HEMOGLOBIN 12.6 g/dl (13.5-17.5); LYMPH # 2.1 10^3/uL (1.5-5.0); LYMPH % 19.4 % (24.0-44.0); MEAN CORPUSCULAR HEMOGLOBIN 29.1 pg (27.0-33.0); MEAN CORPUSCULAR VOLUME 88.2 fl (80.0-96.0); MONO % 9.4 % (2.0-8.0); NEUTROPHILS # 6.4 10^3/uL (1.5-8.5); NEUTROPHILS % 59.1 % (36.0-66.0); PLATELET COUNT, AUTOMATED 272 10^3/uL (150-450); RED BLOOD COUNT 4.33 10^6/uL (4.30-6.10); WHITE BLOOD COUNT 10.8 10^3/uL (4.0-10.0)
[2024-02-13 07:21] LABS: C REACTIVE PROTEIN QUANTITATIV 1.76 MG/DL (<1.0)
[2024-02-13 07:23] LABS: ALKALINE PHOSPHATASE 56 U/L (40-129); ALT/SGPT 24 U/L (7.0-40); AST/SGOT 16 U/L (<34); BILIRUBIN,TOTAL 0.4 MG/DL (0.3-1.2); BLOOD UREA NITROGEN 16 MG/DL (9-23); CALCIUM LEVEL 8.9 MG/DL (8.5-10.1); CARBON DIOXIDE LEVEL 26 MMOL/L (20-31); CHLORIDE LEVEL 107 MMOL/L (98-107); CREATININE FOR GFR 0.85 MG/DL (0.70-1.30); GLOMERULAR FILTRATION RATE > 60.0 (>60); GLUCOSE, FASTING 89 MG/DL (60-100); MAGNESIUM LEVEL 1.4 MG/DL (1.8-2.4); POTASSIUM SERUM 3.8 MMOL/L (3.5-5.1); SODIUM LEVEL 143 MMOL/L (136-145); TOTAL PROTEIN 5.6 G/DL (5.7-8.2)
[2024-02-13 08:04] VITALS: BP 121/83; TEMP 98.1; O2SAT 97
[2024-02-13 08:32] LABS: HEMOGLOBIN A1c 5.1 % (4.0-6.0)
[2024-02-13] MEDS: cefTRIAXone SOD 2 GM in DEXTROSE 5% (D5W) ADV/MINI-BAG 50 ML IV SCH (08:54)
[2024-02-13] MEDS: ENOXAPARIN 40MG/0.4ML SYRINGE (J1650 PER 10MG) SC SCH (08:55)
[2024-02-13] MEDS ORDERED: CEFD300CAP PO (09:22)
[2024-02-13] MEDS ORDERED: FLOM0.4C39 PO (09:22)
== END 2024-02-13 12:37 | disposition home or self-care (01) | DRG 465 ==
LOC: M ED 10:57 → M ED INP 18:01 → M PCU 19:16
PROVIDERS: ADMIT Internal Medicine; ATTEND Internal Medicine
DX: N20.1 Calculus of ureter (principal); N12 Tubulo-interstitial nephritis, not specified as acute or chronic; N13.30 Unspecified hydronephrosis; J45.909 Unspecified asthma, uncomplicated; M17.12 Unilateral primary osteoarthritis, left knee; F90.9 Attention-deficit hyperactivity disorder, unspecified type; N13.4 Hydroureter; R03.0 Elevated blood-pressure reading, without diagnosis of hypertension; Z87.891 Personal history of nicotine dependence

== ENCOUNTER → 2025-01-20 | Outpatient (REF) | payer OTHER ==
[~2025-01-20] MED LIST changes: +ADDE1TAB14 PO; +AMPH1TAB2; +CEFD300CAP PO; +IBUP200T46 PO; +TAMS-18 PO
== END ==
LOC: M SFHCCLAY 11:53
PROVIDERS: ATTEND Physician Assistant
DX: F90.2 Attention-deficit hyperactivity disorder, combined type (principal); E78.00 Pure hypercholesterolemia, unspecified

== ENCOUNTER → 2025-01-23 | Outpatient (REF) | payer OTHER ==
[2025-01-23 18:47] LABS: ALT/SGPT 30.0 U/L (7.0-40); AST/SGOT 22.0 U/L (<34); CALCIUM LEVEL 9.3 MG/DL (8.5-10.1); CARBON DIOXIDE LEVEL 29.0 MMOL/L (20-31); CHLORIDE LEVEL 106.0 MMOL/L (98-107); CHOLESTEROL LEVEL 208.0 MG/DL (<200); CHOLESTEROL RISK RATIO 2.91 (<5); CREATININE FOR GFR 1.12 MG/DL (0.70-1.30); GLOMERULAR FILTRATION RATE 82.1 (>60); LDL CHOLESTEROL 120.3 MG/DL (<100); NON-HDL-C 136.7 MG/DL; POTASSIUM SERUM 4.3 MMOL/L (3.5-5.1); SODIUM LEVEL 143.0 MMOL/L (136-145); TRIGLYCERIDES LEVEL 82.0 MG/DL (<150)
[2025-01-23 19:09] LABS: ESTIMATED AVERAGE GLUCOSE 114.0 MG/DL (60-110)
== END ==
LOC: M SFHCCLAY 17:22
PROVIDERS: ATTEND Physician Assistant
DX: F90.2 Attention-deficit hyperactivity disorder, combined type (principal); E78.00 Pure hypercholesterolemia, unspecified